=== PATIENT | female | born 2000 | race Caucasian/White ===

== ENCOUNTER 2022-01-26 14:20 | Emergency (ER) | payer OTHER ==
[~2022-01-26] VITALS: Ht 160 cm; Wt 70.2 kg
[2022-01-26] MEDS ORDERED: ONDANSETRON 4MG 2ML VIAL IV ONE (18:55)
[2022-01-26] MEDS ORDERED: NS 1,000 ML IV ONE (18:55)
[2022-01-26 19:25] LABS: BASO % 0.5 % (0.0-1.0); EOS # 0.7 10^3/uL (0.0-0.5); HEMATOCRIT 32.9 % (36.0-47.0); HEMOGLOBIN 10.8 g/dl (12.0-15.5); LYMPH # 2.2 10^3/uL (1.5-5.0); LYMPH % 29.4 % (24.0-44.0); MEAN CORPUSCULAR HGB CONC 32.8 g/dl (32.0-36.5); MEAN CORPUSCULAR VOLUME 82.3 fl (80.0-96.0); MONO # 0.8 10^3/uL (0.0-0.8); MONO % 10.8 % (2.0-8.0); NEUTROPHILS # 3.7 10^3/uL (1.5-8.5); NEUTROPHILS % 49.9 % (36.0-66.0); PLATELET COUNT, AUTOMATED 430 10^3/uL (150-450); WHITE BLOOD COUNT 7.3 10^3/uL (4.0-10.0)
[2022-01-26] MEDS: GASTROGRAFIN SOLUTION 30ML PO SCH ×2 (19:30→20:05)
[2022-01-26 19:49] LABS: ALBUMIN 3.5 GM/DL (3.2-5.2); ALT/SGPT 12 U/L (12-78); BILIRUBIN,DIRECT 0.2 MG/DL (0.0-0.2); BILIRUBIN,TOTAL 0.7 MG/DL (0.2-1.0); BLOOD UREA NITROGEN 8 MG/DL (7-18); CALCIUM LEVEL 9.2 MG/DL (8.5-10.1); CARBON DIOXIDE LEVEL 26 MEQ/L (21-32); CHLORIDE LEVEL 105 MEQ/L (98-107); CREATININE FOR GFR 0.54 MG/DL (0.55-1.30); GLUCOSE, FASTING 111 MG/DL (70-100); LIPASE 39 U/L (73-393); POTASSIUM SERUM 3.9 MEQ/L (3.5-5.1); SODIUM LEVEL 136 MEQ/L (136-145); TOTAL PROTEIN 7.3 GM/DL (6.4-8.2)
[2022-01-26 19:59] LABS: HCG, SERUM QUALITATIVE NEGATIVE (NEGATIVE)
[2022-01-26] MEDS ORDERED: PANT40TA29 PO (21:45)
[2022-01-26 22:01] VITALS: BP 123/79
== END 2022-01-26 22:03 | disposition home or self-care (01) ==
LOC: M ED 14:20
DX: R10.12 Left upper quadrant pain (principal); R51.9 Headache, unspecified; R42 Dizziness and giddiness; E10.9 Type 1 diabetes mellitus without complications; K90.0 Celiac disease; F41.9 Anxiety disorder, unspecified; F32.A Depression, unspecified; Z79.899 Other long term (current) drug therapy
CPT/HCPCS: 74176; 80048; 80076; 83690; 84702; 84703; 85025; 96361; 96374; 99284; J2405; Q9963

== ENCOUNTER 2022-05-25 19:00 | Emergency (ER) | payer OTHER ==
[~2022-05-25] VITALS: Ht 160 cm; Wt 70.9 kg
[~2022-05-25 19:00] MED LIST: PANT40TA29 PO
[2022-05-25] MEDS ORDERED: BUSP1TAB (19:13)
[2022-05-25] MEDS ORDERED: ADME100I (19:13)
[2022-05-25] MEDS ORDERED: PROP10TA56 (19:13)
[2022-05-25] MEDS ORDERED: HYDR-643 (19:13)
[2022-05-25] MEDS ORDERED: DULO1CAP4 (19:13)
[2022-05-25] MEDS ORDERED: GABA-282 (19:13)
[2022-05-26] MEDS ORDERED: cefTRIAXone SOD 1 GM in D5W MINI-BAG PLUS 50 ML IV ONE ×2
[2022-05-26] MEDS ORDERED: NS 1,000 ML IV ONE
[2022-05-26] MEDS ORDERED: ACETAMINOPHEN 500 MG TAB PO ONE (00:25)
[2022-05-26 00:34] LABS: BASO % 0.2 % (0.0-1.0); EOS % 0.2 % (0.0-3.0); HEMATOCRIT 30.7 % (36.0-47.0); LYMPH # 1.1 10^3/uL (1.5-5.0); LYMPH % 10.5 % (24.0-44.0); MEAN CORPUSCULAR HEMOGLOBIN 25.4 pg (27.0-33.0); MEAN CORPUSCULAR HGB CONC 32.6 g/dl (32.0-36.5); MEAN CORPUSCULAR VOLUME 77.9 fl (80.0-96.0); MONO % 20.5 % (2.0-8.0); NEUTROPHILS % 68.1 % (36.0-66.0); PLATELET COUNT, AUTOMATED 414 10^3/uL (150-450); RED BLOOD COUNT 3.94 10^6/uL (4.00-5.40); WHITE BLOOD COUNT 10.3 10^3/uL (4.0-10.0)
[2022-05-26 01:04] LABS: ALBUMIN 3.3 G/DL (3.2-5.2); ALKALINE PHOSPHATASE 78 U/L (46-116); ALT/SGPT < 9 U/L (7.0-40); AST/SGOT < 8 U/L (<34); BILIRUBIN,DIRECT 0.3 MG/DL (<0.4); BILIRUBIN,TOTAL 0.7 MG/DL (0.3-1.2); BLOOD UREA NITROGEN 11 MG/DL (9-23); CALCIUM LEVEL 9.3 MG/DL (8.5-10.1); CARBON DIOXIDE LEVEL 26 MMOL/L (20-31); CHLORIDE LEVEL 97 MMOL/L (98-107); CREATININE FOR GFR 0.71 MG/DL (0.55-1.30); GLUCOSE, FASTING 163 MG/DL (60-100); SODIUM LEVEL 132 MMOL/L (136-145); TOTAL PROTEIN 7.3 G/DL (5.7-8.2)
[2022-05-26 01:08] LABS: RSV AMPLIFICATION NEGATIVE (NEGATIVE)
[2022-05-26 01:28] LABS: MONO # 2.1 10^3/uL (0.0-0.8)
[2022-05-26 01:29] LABS: HCG, SERUM QUALITATIVE NEGATIVE (NEGATIVE)
[2022-05-26] MEDS ORDERED: SULF1TAB23 PO (01:51)
[2022-05-26] MEDS ORDERED: PYRI1TAB5 PO (01:52)
[2022-05-26] MEDS ORDERED: IBUPROFEN 800 MG TAB PO ONE (01:55)
[2022-05-26 02:30] VITALS: BP 115/54
[2022-05-28] MEDS ORDERED: CEFD300C41 PO (07:16)
== END 2022-05-26 02:49 | disposition home or self-care (01) ==
LOC: M ED 19:00
DX: N39.0 Urinary tract infection, site not specified (principal); N10 Acute pyelonephritis; E11.9 Type 2 diabetes mellitus without complications; I27.20 Pulmonary hypertension, unspecified; F41.9 Anxiety disorder, unspecified; F32.9 Major depressive disorder, single episode, unspecified; D64.9 Anemia, unspecified; K90.0 Celiac disease; Z86.16 Personal history of COVID-19; Z88.1 Allergy status to other antibiotic agents
CPT/HCPCS: 80048; 80076; 81001; 83605; 84703; 85025; 87088; 87186; 87631; 96361; 96374; 99284; J0696

== ENCOUNTER 2023-06-05 14:20 | Emergency (ER) | payer OTHER ==
[~2023-06-05] VITALS: Ht 160 cm; Wt 72.0 kg
[~2023-06-05 14:20] MED LIST changes: +ADME100I; +BUSP1TAB; +CEFD1CAP9 PO; +DULO1CAP4; +GABA-282; +HYDR-643; +PROP10TA56; +PYRI1TAB5 PO; +SULF1TAB23 PO
[2023-06-05 15:42] LABS: BASO # 0.1 10^3/uL (0.0-0.2); EOS # 0.2 10^3/uL (0.0-0.5); EOS % 4.8 % (0.0-3.0); HEMATOCRIT 34.1 % (36.0-47.0); LYMPH # 1.3 10^3/uL (1.5-5.0); LYMPH % 26.1 % (24.0-44.0); MEAN CORPUSCULAR HEMOGLOBIN 24.9 pg (27.0-33.0); MEAN CORPUSCULAR HGB CONC 32.3 g/dl (32.0-36.5); MEAN CORPUSCULAR VOLUME 77.1 fl (80.0-96.0); MONO # 0.6 10^3/uL (0.0-0.8); MONO % 11.4 % (2.0-8.0); NEUTROPHILS # 2.7 10^3/uL (1.5-8.5); NEUTROPHILS % 56.3 % (36.0-66.0); PLATELET COUNT, AUTOMATED 398 10^3/uL (150-450); RED BLOOD COUNT 4.42 10^6/uL (4.00-5.40); WHITE BLOOD COUNT 4.8 10^3/uL (4.0-10.0)
[2023-06-05 16:13] LABS: HCG, SERUM QUALITATIVE NEGATIVE (NEGATIVE)
[2023-06-05 16:14] LABS: BLOOD UREA NITROGEN 17 MG/DL (9-23); CALCIUM LEVEL 9.2 MG/DL (8.5-10.1); CARBON DIOXIDE LEVEL 25 MMOL/L (20-31); CHLORIDE LEVEL 102 MMOL/L (98-107); CK-MB VALUE MASS 1.6 NG/ML (<3.6); CPK CREATINE PHOSPHOKINASE 113 U/L (34-145); CREATININE FOR GFR 0.67 MG/DL (0.55-1.30); GLOMERULAR FILTRATION RATE > 60.0 (>60); GLUCOSE, FASTING 102 MG/DL (60-100); MB/CK RELATIVE INDEX 1.41 (< OR =4); POTASSIUM SERUM 4.1 MMOL/L (3.5-5.1); SODIUM LEVEL 135 MMOL/L (136-145)
[2023-06-05] MEDS ORDERED: NITR-67 PO (19:43)
[2023-06-05 19:51] VITALS: BP 113/74; TEMP 97.2; O2SAT 100
[2023-06-05] MEDS: NITROFURANTOIN (MACROBID) 100 MG CAP PO ONE (19:53)
== END 2023-06-05 20:11 | disposition home or self-care (01) ==
LOC: M ED 14:20
DX: N39.0 Urinary tract infection, site not specified (principal); E10.40 Type 1 diabetes mellitus with diabetic neuropathy, unspecified; I27.20 Pulmonary hypertension, unspecified; Z79.4 Long term (current) use of insulin; Z79.899 Other long term (current) drug therapy; Z88.1 Allergy status to other antibiotic agents; Z91.018 Allergy to other foods